=== PATIENT | male | born 1980 | race Caucasian/White ===

== ENCOUNTER 2020-08-26 18:08 | Emergency (ER) | payer MEDICAID ==
[~2020-08-26] VITALS: Ht 180.3 cm; Wt 95.3 kg
[2020-08-26 18:08] VITALS: BP_SYST 126
[2020-08-26 19:12] LABS: BILIRUBIN,URINE NEGATIVE (NEGATIVE); BLOOD, URINE 3+ (NEGATIVE); CLARITY/URINE SL CLOUDY (CLEAR); GLUCOSE,URINE NEGATIVE (NEGATIVE); KETONES,URINE NEGATIVE (NEGATIVE); LEUKOCYTE ESTERASE ,URINE 2+ (NEGATIVE); NITRITE, URINE NEGATIVE (NEGATIVE); PROTEIN URINE 2+ (NEGATIVE); UROBILINOGEN,URINE 0.2 (0.2-1.0)
[2020-08-26 19:18] LABS: COLOR,URINE RED (YELLOW)
[2020-08-26 19:22] LABS: BACTERIA,URINE FEW /HPF (None Seen); RBC,URINE 80-100 /HPF (0-3); WBC,URINE >100 /HPF (0-3)
[2020-08-26 19:23] LABS: MUCUS,URINE 1+ /LPF (None Seen)
[2020-08-26] MEDS ORDERED: CEPH-568 PO (19:32)
[2020-08-26] MEDS ORDERED: PHEN-726 PO (19:32)
[2020-08-26 19:41] VITALS: BP_SYST 126
== END 2020-08-26 19:41 | disposition home or self-care (01) ==
LOC: SED 18:08
DX: N39.0 Urinary tract infection, site not specified (principal); R31.9 Hematuria, unspecified
CPT/HCPCS: 81000-TC; 87086; 87491; 87591; 99283